=== PATIENT | female | born 1995 | race Hispanic/Latino ===

== ENCOUNTER 2016-12-12 23:23 | Emergency (ER) | payer MEDICAID ==
[2016-12-13 00:02] VITALS: O2SAT 99
[2016-12-13] MEDS ORDERED: Midazolam 50 mg/10 ml Inj IVP ONE (00:54)
--- NOTE | 2016-12-13 01:07 | C.PDOC ---
History Of Present Illness 21 year old female with prior Hx of DVT presents to the ED with an abscess in her groin region, and to have it drained today. She states having a similar one last month but it resolved on its own. Patient is currently taking coumadin. She denies any fever, sweats, myalgia, arthralgia. Time Seen by Provider: 12/13/16 00:16 Chief Complaint (Nursing): Female Genitourinary History Per: Patient History/Exam Limitations: no limitations Onset/Duration Of Symptoms: Hrs Current Symptoms Are (Timing): Still Present Location Of Injury: Left: Leg (abscess above left inguinal fold), Anterior: Leg Recent travel outside of the [place]: No Additional History Per: Patient Past Medical History Reviewed: Historical Data, Nursing Documentation, Vital Signs Vital Signs: Last Vital Signs Temp 98.8 F 12/13/16 03:40 Pulse 94 H 12/13/16 03:40 Resp 20 12/13/16 03:40 BP 120/64 12/13/16 03:40 Pulse Ox 99 12/13/16 04:49 - Medical History PMH: Deep Vein Thrombosis (2009, 2011 bilateral legs) Surgical History: No Surg Hx Family History: States: Unknown Family Hx - Social History Hx Tobacco Use: No Hx Alcohol Use: No Hx Substance Use: No - Immunization History Hx Tetanus Toxoid Vaccination: No Hx Influenza Vaccination: No Hx Pneumococcal Vaccination: No Review Of Systems Constitutional: Negative for: Fever, Chills, Sweats Cardiovascular: Negative for: Chest Pain Respiratory: Negative for: Shortness of Breath Gastrointestinal: Negative for: Nausea, Vomiting Neurological: Negative for: Weakness, Numbness Physical Exam - Physical Exam Appears: Non-toxic, No Acute Distress Skin: Normal Color, Warm, Dry Head: Atraumatic, Normacephalic Oral Mucosa: Moist Neck: Normal, Supple Chest: Symmetrical Cardiovascular: Rhythm Regular Respiratory: Normal Breath Sounds, No Accessory Muscle Use, No Rales, No Rhonchi , No Wheezing Gastrointestinal/Abdominal: Soft, No Tenderness, No Guarding, No Rebound Pelvic: Other (3 by 5 abscess above left inguinal fold, fluctuant and tender to palpation) Extremity: Normal ROM, No Pedal Edema, No Calf Tenderness, Capillary Refill ( less than 2 seconds), No Deformity Pulses: Left Femoral: Normal, Right Femoral: Normal, Left Dorsalis Pedis: Normal , Right Dorsalis Pedis: Normal Neurological/Psych: Oriented x3, Normal Speech, Normal Cognition ED Course And Treatment O2 Sat by Pulse Oximetry: 99 (On RA) Pulse Ox Interpretation: Normal - Incision & Drainage Of Abscess Anesthesia: IV Sedation (Ketamine 2ml per mg and 0.5 mg per kg percocet ) Used During Procedure: Continuous Pulse Oximetry, Heating Fixture Tender, Oxygen Prep Used: Betadine Procedure: Incised W/Scalpel Blade#: (11 ), Drained Pus (10 cc total), Packed W/ Gauze, Cultures Obtained And Sent To Lab Medical Decision Making Medical Decision Making: Impression : 21 year old female presents to have an abscess drained Patient underwent and incision and drainage with IV anesthesia, cultures were obtained from abscess and patient was discharged home Disposition - Disposition Disposition: HOME/ ROUTINE Disposition Time: 01:59 Condition: GOOD Additional Instructions: leave dressing intact for 2 days,return to ED at that time for packing removal Prescriptions: Acetaminophen/Hydrocodone Bi [Vicodin 300 mg-5 mg] 1 tab PO Q6 PRN #10 tab PRN Reason: Pain, Mild (1-3) Sulfamethoxazole/Trimethoprim [Bactrim Ds Tablet] 1 each PO BID #10 tablet Forms: Work/School/Gym Excuse, [employer] (Greek) - Clinical Impression Clinical Impression: Inguinal abscess - Scribe Statement The provider has reviewed the documentation as recorded by the Scribe Meir Jacobsen All medical record entries made by the Scribe were at my direction and personally dictated by me. I have reviewed the chart and agree that the record accurately reflects my personal performance of the history, physical exam, medical decision making, and the department course for this patient. I have also personally directed, reviewed, and agree with the discharge instructions and disposition. ED Procedural Sedation - Pre Anesthesia Assessment Chief Complaint: Female Genitourinary Past Medical History: Allergies Reviewed Previous Surgies: Reviewed Family History/Social History: Reviewed - Physical Exam/Review of Systems Vital Signs Reviewed: Yes Cardiovascular: Regular Rate and Rhythm, Normal S1, S2 Respiratory/Chest: Clear to Auscultation, Good Air Exchange Neurological: GCS=15, CN II-XII Intact, Speech Normal Mental Status: Alert and Oriented X 3 - Pre-Procedure Airway Assessment History of difficult intubation or surgical airway (i.e trach):: No Inability to extend neck:: No Mouth opening less than two finger breadth:: No Diagnosis of sleep apnea:: No Less than three finger breadth to hyoid bone:: No ASA Criteria: 1 - Healthy, normal. 2 - Mild systemic disease (No functional limitations, mildline obesity, DM withot complications, Hypertention). 3 - Severe systemic disease (Some functional limitation, stable angina, morbid obesity, controlled COPD/Asthma/CHF). 4 - Sever systemic disease constant threat to life (Unstable angina, active symptoms of COPD/Asthma, CHF/ Hypertension. 5 - Moribund ASA Clarification: ASA I Mallampati (airway): Class I - Intra-Procedure (Medications) Medications Given: Discontinued Medications Ketamine HCl (Ketalar) 90 mg IV ONCE ONE Stop: 12/13/16 01:14 Last Admin: 12/13/16 01:31 Dose: 90 mg eMAR Start Stop Document 12/13/16 01:31 AA (Rec: 12/13/16 02:03 AA [id number]) Intravenous Solution Start Date 12/13/16 Start Time 01:31 End Date 12/13/16 End time 01:32 Total Infusion Time 1 Ketamine HCl (Ketalar) 90 mg IV ONCE ONE Stop: 12/13/16 02:04 Last Admin: 12/13/16 01:35 Dose: 90 mg eMAR Start Stop Document 12/13/16 01:35 AA (Rec: 12/13/16 02:16 AA [id number]) Intravenous Solution Start Date 12/13/16 Start Time 01:35 End Date 12/13/16 End time 01:36 Total Infusion Time 1 Midazolam HCl (Versed Inj) 5 mg IVP ONCE ONE Stop: 12/13/16 00:55 Last Admin: 12/13/16 01:30 Dose: 5 mg IVP Administration Document 12/13/16 01:30 AA (Rec: 12/13/16 02:02 AA [id number]) Charges for Administration # of IVP Administrations 1 Gordillo Agitation Sedation Document 12/13/16 01:30 AA (Rec: 12/13/16 02:02 AA [id number]) [place] Agitation Sedation Scale [place] Agitation Sedation Scale Score -3 Moderate Sedation:Movement or eye opening to voice (no eye contact) - Post-Procedure Post Procedure Note: pt is doing quite well,no complications,ambulatory on discharge,thanked me
[2016-12-13] MEDS ORDERED: Ketamine 50 mg/ml Inj (10 ml) IV ONE ×2 (01:13→02:03)
[2016-12-13] MEDS ORDERED: Ketamine 50 mg/ml Inj (10 ml) ONE (01:18)
[2016-12-13] MEDS ORDERED: Midazolam 2 MG/2 ML VIAL ONE (01:18)
[2016-12-13 03:42] VITALS: BP 120/64; PULSE 94; RESP 20; TEMP 98.8
== END 2016-12-13 04:14 | disposition home or self-care (01) ==
LOC: C.ER 23:23
DX: L02.214 Cutaneous abscess of groin (principal)
CPT/HCPCS: 10060; 87070; 87181; 96374; 99285; J2250

== ENCOUNTER 2016-12-15 19:39 | Emergency (ER) | payer MEDICAID ==
[2016-12-15 20:02] VITALS: BP 125/85; PULSE 84; RESP 16; TEMP 97.9; O2SAT 99
--- NOTE | 2016-12-15 20:58 | C.PDOC ---
History Of Present Illness 21 year old female presents to the ED for a wound check. Patient was evaluated in ED two days ago and underwent I&D for a groin abscess. Patient presents for packing removal. Patient denies fever, chills, wound drainage and has no complaints at this time. (Iza Segal) History Per: Patient History/Exam Limitations: no limitations Onset/Duration Of Symptoms: Days Ago (2) Current Symptoms Are (Timing): Still Present Quality Of Symptoms: denies: Painful, Itching, Swollen, Draining Additional History Per: Patient Time Seen by Provider: 12/15/16 20:14 Chief Complaint (Nursing): Wound Check Past Medical History Reviewed: Historical Data, Nursing Documentation, Vital Signs - Medical History PMH: Deep Vein Thrombosis (2009, 2011 bilateral legs) Surgical History: No Surg Hx Family History: States: Unknown Family Hx - Social History Hx Tobacco Use: No Hx Alcohol Use: No Hx Substance Use: No - Immunization History Hx Tetanus Toxoid Vaccination: No Hx Influenza Vaccination: No Hx Pneumococcal Vaccination: No Vital Signs: Last Vital Signs Temp 97.9 F 12/15/16 19:59 Pulse 84 12/15/16 19:59 Resp 16 12/15/16 19:59 BP 125/85 12/15/16 19:59 Pulse Ox 99 12/15/16 22:27 Review Of Systems Constitutional: Negative for: Fever, Chills Skin: Positive for: Other (wound check ) Physical Exam - Physical Exam Appears: Non-toxic, No Acute Distress Skin: Normal Color, Warm, Dry, Other (left inguinal area: healing wound with packing in place. no surrounding erythema or tenderness ) Neurological/Psych: Oriented x3, Normal Speech, Normal Cognition Gait: Steady ED Course And Treatment O2 Sat by Pulse Oximetry: 99 (on RA) Pulse Ox Interpretation: Normal Medical Decision Making Medical Decision Making: Packing was removed by me. Area was irrigated with saline and new bandage was applied. Patient tolerated well with no complications. (Iza Segal) Disposition - Disposition Disposition Time: 20:57 - Disposition Referrals: Isatu Carrasco MD [Staff Provider] - Disposition: HOME/ ROUTINE Condition: GOOD Additional Instructions: Follow up with the medical doctor within 1-2 days. Return if worsened. Instructions: Abscess (GEN) Forms: [employer] (Tai[place]ese) - Clinical Impression Clinical Impression: Wound check, abscess - PA / EQUAL OPPORTUNITY OFFICER / Resident Statement MD/DO has reviewed & agrees with the documentation as recorded. - Scribe Statement The provider has reviewed the documentation as recorded by the Scribe (Millicent Jordan) - Scribe Statement All medical record entries made by the Scribe were at my direction and personally dictated by me. I have reviewed the chart and agree that the record accurately reflects my personal performance of the history, physical exam, medical decision making, and the department course for this patient. I have also personally directed, reviewed, and agree with the discharge instructions and disposition. (Iza Segal)
== END 2016-12-15 21:04 | disposition home or self-care (01) ==
LOC: C.ER 19:39
DX: Z51.89 Encounter for other specified aftercare (principal)